=== PATIENT | female | born 1940 | race Caucasian/White ===

== ENCOUNTER 2017-10-28 09:40 | Day surgery (SDC) | payer OTHER, BC ==
[2017-10-27 09:15] VITALS: BMI 29.8
[2017-10-28 11:54] VITALS: TEMP 97.9
[2017-10-28 13:31] VITALS: BP 111/51; PULSE 56
--- NOTE | 2017-11-01 18:13 | PATH ---
Surgical Pathology Report Patient Name: ALESIA LAROSE [facility], [place]. Rec. #: [id number] /Age/Gender: 1940 (Age: 77) / F Account: [id number] Location: U-ENDOSCOPY Taken: 10/28/2017 Received: 10/31/2017 Reported: 11/01/2017 Physicians: Lucina Reyna M.D. Specimen(s) Received A: BX POLYP DISTAL TRANSVERSE COLON B: RECTAL POLYP Clinical History Constipation, rectal mass, personal history of colon polyp Postoperative diagnosis: diverticulosis, colon polyp Final Diagnosis A. DISTAL TRANSVERSE COLON POLYP, POLYPECTOMY: TUBULAR ADENOMA. B. RECTAL POLYP, POLYPECTOMY: HYPERPLASTIC POLYP. Electronically Signed Karsten Earl M.D. Gross Description A. Received in formalin, labeled "polyp from distal transverse colon" is a maki, irregular portion of soft tissue measuring 0.3 cm. in greatest dimension. The specimen is submitted in toto in one cassette. B. Received in formalin, labeled "polyp from rectum" are 2 maki, irregular portions of soft tissue measuring 0.1 and 0.4 cm. in greatest dimension. The specimens are submitted in toto in one cassette. 10/31/2017 saudi10/31/2017
== END 2017-10-28 13:31 | disposition home or self-care (01) ==
LOC: JASU-ENDO 09:40
PROVIDERS: ATTEND Internal Medicine Gastroenterology
PROC: 0DBL8ZX Excision of Transverse Colon, Via Natural or Artificial Opening Endoscopic, Diagnostic (ICD-10-PCS; 2017-10-28)
PROC: 0DBP8ZX Excision of Rectum, Via Natural or Artificial Opening Endoscopic, Diagnostic (ICD-10-PCS; principal; 2017-10-28 11:00)
DX: Z12.11 Encounter for screening for malignant neoplasm of colon (principal); D12.3 Benign neoplasm of transverse colon; K57.30 Diverticulosis of large intestine without perforation or abscess without bleeding; K64.8 Other hemorrhoids; K62.1 Rectal polyp
CPT/HCPCS: 88305-TC

== ENCOUNTER 2018-09-07 21:59 | Emergency (ER) | payer OTHER, BC ==
[2018-09-07 22:17] VITALS: BMI 30.9
[2018-09-07] MEDS ORDERED: ACETAMINOPHEN 500 MG TABLET (FP) PO ONE (22:31)
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
[2018-09-07] MEDS ORDERED: ACETAMINOPHEN 325 MG TABLET (FP) ONE (23:22)
--- NOTE | 2018-09-07 23:56 | PDOC ---
*Physical Exam - Vital Signs Last Vital Signs Temp Pulse Resp BP Pulse Ox 98 F 79 16 161/79 100 09/07/18 22:11 09/07/18 22:11 09/07/18 22:11 09/07/18 22:11 09/07/18 22:11 Medical Decision Making - Medical Decision Making 09/07/18 23:55 Case reviewed, agree with assessment and plan *DC/Admit/Observation/Transfer Diagnosis at time of Disposition: Closed head injury Qualifiers: Encounter type: initial encounter Qualified Code(s): S09.90XA - Unspecified injury of head, initial encounter - Discharge Dispostion Disposition: HOME Condition at time of disposition: Stable - Referrals - Patient Instructions Printed Discharge Instructions: DI for Closed Head Injury Additional Instructions: Take Tylenol or Motrin as needed for headaches. Make an appointment with her primary doctor for reevaluation within the next week. Return to emergency department for worsening headache, blurry vision, dizziness , nausea, vomiting or any other concerns. Thank you very much for for choosing us to provide emergent health care needs. - Post Discharge Activity
[2018-09-08 03:39] VITALS: BP 159/91; PULSE 74; TEMP 97.6
== END 2018-09-08 01:08 | disposition home or self-care (01) ==
LOC: JER 21:59
DX: S09.90XA Unspecified injury of head, initial encounter (principal); G44.319 Acute post-traumatic headache, not intractable; W18.39XA Other fall on same level, initial encounter; Y93.89 Activity, other specified; Y92.89 Other specified places as the place of occurrence of the external cause; F17.210 Nicotine dependence, cigarettes, uncomplicated; I10 Essential (primary) hypertension; E78.00 Pure hypercholesterolemia, unspecified
CPT/HCPCS: 70450-TC; 72125-TC; 99281-25

== ENCOUNTER 2020-01-20 14:21 | Emergency (ER) | payer OTHER, BC ==
[2020-01-20 14:42] VITALS: BP 160/85; PULSE 88; TEMP 98; BMI 30.4
== END 2020-01-20 15:09 | disposition home or self-care (01) ==
LOC: FER 14:21
DX: B86 Scabies (principal)
CPT/HCPCS: 99282-25